=== PATIENT | female | born 2000 | race Caucasian/White ===

== ENCOUNTER 2023-07-23 19:10 | Emergency (ER) | payer OTHER, SELFPAY ==
[2023-07-23 19:10] VITALS: BMI 23.6
[2023-07-23 19:11] VITALS: BP 142/84
--- NOTE | 2023-07-23 19:28 | ED.GENMED ---
History of Present Illness
General
Chief Complaint: Abdominal Pain
Source: patient
Exam Limitations: none
Time Seen by Provider: 07/23/23 19:19
Nursing documentation reviewed up to this point in time: agreed with
Travel History
Have you had any contact with someone who has COVID-19?: No
Do you have any symptoms of coronavirus? Fever > 100 degrees, chills, cough, shortness of breath, sore throat, loss of taste or smell, muscle aches, or headache?: No
History of Present Illness
History of Present Illness:
22 yo female with no significant PMHX, has Kyleena hormonal IUD since Oct 2022, has had 4 episodes in past week of sharp shooting pain right and left lower abdomen and intra vaginally. Last episode was 30 minutes ago lasting 3 minutes and now with
residual 5/10 pain across lower abdomen. Has taken nothing for the pain. Denies fever/chills, n/v.
Saw her [facility] Dr. Johnson at [facility] on 07/18 and string from IUD was seen and US ordered but pt could not get US until 2 weeks from now. With tonight's pain she did not want to wait.
Past History
Past History
ED Past Medical History: Asthma
ED Past Surgical History: None and Gynecological (had IUD since Oct 2022)
Social History
Tobacco: Non-smoker
Personal: Single
Living: with family
Review of Systems
Review of Systems
Allergies reviewed?: Yes
All Other Systems: ROS reviewed and negative except as documented in HPI and ROS
Constitutional: Denies fever
Respiratory: Denies trouble breathing
Cardiac: Denies chest pain
ABD/GI: Reports abdominal pain; Denies nausea, vomiting or diarrhea
: Reports other (LMP 7 months ago. Sharp shooting vaginal and lower abdominal pains); Denies dysuria, difficulty voiding, urgency or bleeding
Musculoskeletal: Reports no symptoms
Skin: Reports no symptoms
Neurological: Reports no symptoms
Phy Exam
Physical Exam
Physical Exam:
GENERAL: No acute distress. A&Ox3.
CONSTITUTIONAL: Afebrile.
RESPIRATORY: Regular respirations, nonlabored, lungs clear.
CARDIOVASCULAR: Regular rate and rhythm, no murmurs, no rubs.
GI: Soft, mild tenderness across lower abdomen, normal BS
MUSCULOSKELETAL: Moves with ease. Well perfused.
SKIN: Warm, dry, pink
PSYCH: Normal mood and affect. Well kept, interactive and appropriate
NEUROLOGIC: Awake, alert and oriented. No focal neurological deficits
Course
Orders/Labs/Results
Orders:
Orders
07/23/23 19:20
US Pelvis Only (non-obstetric) Urgent
Comment:
Reason For Exam: pain lower abd 1 week, worse today, has IUD
07/23/23 19:27
Ketorolac [Toradol] 15 mg IV NOW STA
Test Result ONCE
07/23/23 19:36
Complete Blood Count/With Diff Urgent
Comprehensive Metabolic Panel Urgent
HCG, Serum Qualitative Screen Urgent
07/23/23 22:04
Basic Metabolic Panel Urgent
Abnormal Lab Results
07/23/23
19:36
MPV 11.0 H fL
(7.4-10.4)
Chloride 108 H mmol/L
(98-107)
Carbon Dioxide 16 L mmol/L
(22-30)
Glucose 113 H mg/dl
(70-99)
07/23/23 19:36
07/23/23 22:04
Vital Signs
Initial and Last Documented VS:
Initial Vital Signs
Temp Pulse Resp BP Pulse Ox
98.7 F 78 18 142/84 100
07/23/23 19:11 07/23/23 19:11 07/23/23 19:11 07/23/23 19:11 07/23/23 19:11
Last Documented Vital Signs
Temp Pulse Resp BP Pulse Ox
98.7 F 74 18 122/66 99
07/23/23 19:11 07/23/23 22:45 07/23/23 22:45 07/23/23 22:45 07/23/23 22:45
MDM/Problems Addressed
Differential Diagnosis Includes:
displaced IUD, endometriosis,
MDM/Problems Addressed:
22 yo female with no significant PMHX, has Kyleena hormonal IUD since Oct 2022, has had 4 episodes in past week of sharp shooting pain right and left lower abdomen and intra vaginally. Last episode was 30 minutes ago lasting 3 minutes and now with
residual 5/10 pain across lower abdomen, both sides equally. Has taken nothing for the pain. Denies fever/chills, n/v.
Saw her [facility] [facility] Dr. Johnson at [facility] on 07/18 and string from IUD was seen and US ordered but pt could not get US until 2 weeks from now. With tonight's pain she did not want to wait.
Afebrile, NAD
8:00 PM
CBC normal
CMP with a bicarb of 16, most likely from mild dehydration, patient has drank multiple glasses of water to fill her bladder, will recheck
hCG negative
9:30 PM:
IUD in position. Otherwise unremarkable
11:30 PM
Recheck BMP, bicarb is now normal.
Pt still with pain across lower abdomen
Offered CT with po and IV contrast but pt kindly declined. She states she is satisfied that the IUD is in place. She is an EMT and knows return symptoms. She will return if worse
Pt ambulated out with normal gait at discharge
*Critical Care Note
Total Time (30-74mins, 75-104mins- exclusive of procedures): Not Applicable
ED Attending Note
-
Portions of this chart may have been created with voice recognition software.� Occasional wrong word or��sound alike� substitutions may have occurred due to the inherent limitations of voice recognition software.
Discharge Plan
Departure
Patient Disposition: Home (Routine Discharge)
Date of Disposition: 07/23/23
Time of Disposition: 23:32
Patient with high blood pressure during this ER visit?: No
Condition: Good
Discharge Problem:
Abdominal pain
Instructions: Abdominal Pain
Prescriptions:
No Action
montelukast 10 MG tablet
10 mg PO DAILY
Control Pill
1 tab PO DAILY
prednisone 20 MG tablet
40 mg PO DAILY Qty: 8 0RF
Rx Instructions:
2 tablets daily �4 days
fluticasone propionate [Flovent HFA] 1 PUFF HFA aerosol inhaler
2 puff inhalation R BID Qty: 1 0RF
Referrals:
UNKNOWN - PT DOES,NOT KNOW [Family Provider] -
Activity Restrictions/Additional Instructions:
As we discussed, your ultrasound shows nothing worrisome, the IUD is in proper place.
Ibuprofen 600 mg, with food, every 6 hours as needed for pain
See your [facility] doctor for follow-up if your pain is not much improved within the next 3 days.
Return here immediately if the pain worsens or you feel sicker in any way
Interventions
Interventions:
*Risk Screen - Suicide Last Done: 07/23/23 19:11
*General Assessment Last Done: 07/23/23 20:55
*Neglect/Abuse Screening Last Done: 07/23/23 19:11
ED- Fall Risk Assessment Last Done: 07/23/23 23:38
*ED COVID-19 Vaccine History Last Done: 07/23/23 20:55
*Nursing Disposition Last Done: 07/23/23 23:38
EK-Atitwv-Grfktearka Assessment Last Done: 07/23/23 19:46
Discharge Date and Time
Discharge Date/Time: 07/23/23 23:39
Print Language: [id number]
[2023-07-23 19:42] LABS: % Basophils 0.4 % (0-2); % Eosinophils 2.5 % (0-6); % Immature Granulocytes 0.3 % (0-0.5); % Monocytes 4.8 % (1.7-9.3); Absolute Eosinophils 0.2 10^3/uL (0-0.7); Absolute Lymphocytes 2.2 10^3/uL (1.2-3.4); Absolute Monocytes 0.4 10^3/uL (0.1-0.6); Absolute Neutrophils 6.2 10^3/uL (1.4-6.5); Hematocrit 39.2 % (37.0-47.0); Hemoglobin 13.6 g/dL (12.0-16.0); Mean Corp Hgb Conc. 34.7 g/dL (33.0-37.0); Mean Corpuscular Hgb 30.3 pg (27.0-31.0); Mean Corpuscular Volume 87.3 fL (81.0-99.0); Nucleated Red Blood Cells % 0 %; Platelet Count 224 10^3/uL (130-400); Red Blood Cell Count 4.49 10^6/uL (4.20-5.40); Red Cell Dist. Width 12.5 % (11.5-14.5); White Blood Cell Count 9.2 10^3/uL (4.8-10.8)
[2023-07-23] MEDS: TORADOL 15 MG IV (19:43)
[2023-07-23 19:57] LABS: ALT (SGPT) 15 U/L (0-35); AST (SGOT) 30 U/L (14-36); Albumin 4.7 g/dl (3.5-5.0); Alkaline Phosphatase 99 U/L (38-126); Blood Urea Nitrogen 14 mg/dl (7-17); Calcium 9.6 mg/dl (8.4-10.2); Carbon Dioxide 16 mmol/L (22-30); Chloride 108 mmol/L (98-107); Glucose 113 mg/dl (70-99); Potassium 3.9 mmol/L (3.5-5.1); Sodium 139 mmol/L (135-145); Total Bilirubin 0.4 mg/dl (0.2-1.3); Total Protein 7.2 g/dl (6.3-8.2); eGFR > 60.00
[2023-07-23 19:59] LABS: HCG, Serum Qualitative Screen Negative
[2023-07-23 22:27] LABS: Blood Urea Nitrogen 15 mg/dl (7-17); Calcium 9.4 mg/dl (8.4-10.2); Carbon Dioxide 22 mmol/L (22-30); Chloride 106 mmol/L (98-107); Estimated Creatinine Clearance 97 ml/min; Glucose 92 mg/dl (70-99); Potassium 3.7 mmol/L (3.5-5.1); Sodium 138 mmol/L (135-145); eGFR > 60.00
[2023-07-23 22:45] VITALS: BP 122/66
== END 2023-07-23 23:39 | disposition home or self-care (01) ==
LOC: EMR 19:10
PROVIDERS: Registered Nurse; EMERGENCY PHYSICIAN Emergency Medicine
DX: R10.31 Right lower quadrant pain (principal); R10.32 Left lower quadrant pain; J45.909 Unspecified asthma, uncomplicated
CPT/HCPCS: 99284; 96374; 76856; 80048; 80053; 84703; 85025